=== PATIENT | female | born 1970 | race Two or more races ===

== ENCOUNTER → 2024-07-12 | Outpatient (CLI) | payer BC, MEDICAID, SELFPAY ==
--- NOTE | 2024-07-12 | XR_ITS ---
Examination: Lumbar spine 3 views Technique one AP lateral coned lateral lower lumbar spine 3 views Exam date and time: July 12, 2024 1137 hours INDICATIONS: Patient fell 2 years ago with injury to lower back, lower back pain. FINDINGS: No acute lumbar fracture Grade 2 spondylolisthesis L5 on S1 with advanced degenerative disc disease at this level No cortical bone destruction Intact pedicles IMPRESSION: Grade 2 spondylolisthesis L5 on S1 Advanced degenerative disc disease L5-S1 No lumbar fracture
--- NOTE | 2024-07-12 | XR_ITS ---
Examination: AP pelvis single view TECHNIQUE: AP portable supine pelvis single view Exam date and time: July 12, 2024 1141 hours INDICATIONS: Patient fell 2 years ago with injury to the pelvis, bilateral pelvic pain. FINDINGS: No acute hip or pelvic fracture Mild bilateral hip osteoarthritis Bilateral greater trochanteric bursitis IMPRESSION: Mild bilateral hip osteoarthritis Bilateral hip greater trochanteric bursitis
== END | disposition home or self-care (01) ==
PROVIDERS: PCP Internal Medicine
DX: M43.17 Spondylolisthesis, lumbosacral region (principal); M51.379 Other intervertebral disc degeneration, lumbosacral region without mention of lumbar back pain or lower extremity pain; M16.0 Bilateral primary osteoarthritis of hip; M70.62 Trochanteric bursitis, left hip; M70.61 Trochanteric bursitis, right hip
CPT/HCPCS: 72100; 72170

== ENCOUNTER 2025-02-23 12:32 | Emergency (ER) | payer OTHER, SELFPAY ==
[2025-02-23 12:33] VITALS: BMI 21.2
[2025-02-23 12:47] VITALS: BP 145/84; PULSE 89; RESP 18; TEMP 36.9; O2SAT 99
--- NOTE | 2025-02-23 12:53 | XR_ITS ---
Examination: Knee, left, 3 views Technique: Knee AP, lateral, oblique 3 views Date and time of exam: February 23, 2025: 1300 hours INDICATIONS: Ground-level fall today with injury to the knee, knee pain. FINDINGS: No knee fracture or dislocation No foreign body IMPRESSION: No fracture or dislocation
--- NOTE | 2025-02-23 12:53 | XR_ITS ---
Examination: Shoulder, left, 3 views Technique: Shoulder AP internal rotation, AP external rotation, Y view shoulder, 3 views Exam date and time : February 23, 2025, 1300 hours INDICATIONS: Ground-level fall today with injury to the shoulder, shoulder pain. FINDINGS: No shoulder fracture or dislocation Prominent calcific tendinitis IMPRESSION: No shoulder fracture or dislocation
--- NOTE | 2025-02-23 12:53 | XR_ITS ---
EXAMINATION: Lumbar spine 3 views TECHNIQUE: AP lateral: Lateral lower lumbar spine 3 views Date and time: February 23, 2025, 1300 hours, comparison July 12, 2024 INDICATIONS: Ground-level fall today with injury of the lower back, lower back pain. FINDINGS: No acute lumbar fracture Again noted grade 2 spondylolisthesis L5 on S1 with advanced degenerative disc disease at this level Mild lumbar spondylosis IMPRESSION: No acute lumbar fracture
--- NOTE | 2025-02-23 12:53 | XR_ITS ---
Examination: Left hip AP, lateral, AP pelvis 3 views Technique: Hip AP lateral, AP pelvis, 3 views Exam date and time: February 23, 2025, 1300 hours INDICATIONS: Ground-level fall today with injury of the left hip, left hip pain. FINDINGS: No left hip fracture or hip dislocation Right hip bones of the pelvis intact Bilateral hip greater trochanteric bursitis IMPRESSION: No hip or pelvic fracture Repeat an AP pelvis film in 1 day as clinically warranted.
--- NOTE | 2025-02-23 12:54 | EDNOTE_ITS ---
ED Fall Injury RME/HPI General Chief Complaint: Fall Stated Complaint: S/P FALL AT WORK 3 DAYS AGO Time Seen by Provider: 02/23/25 12:41 Source: patient Arrival date/time: 02/23/25 12:32 55-year-old female with no known medical history was sent to the emergency room by her work after having a ground-level fall that occurred 3 days ago in which she missed a step and fell on her left side injuring her shoulder hip and knee Mode of arrival: ambulatory Limitations: no limitations Related Data Allergies Allergy/AdvReac Type Severity Reaction Status Date / Time No Known Allergies Allergy Unknown Uncoded 02/23/25 12:33 Review of Systems Review of Systems Systems Reviewed: All systems reviewed, normal except as documented Constitutional Constitutional: Reports system reviewed and no additional complaints, except as documented, Denies fatigue, Denies fever(s), Denies headache(s) and Denies weakness Eyes Eyes: Reports system reviewed and no additional complaints, except as documented, Denies blurry vision and Denies change in vision ENT Ears, Nose, Mouth, and Throat: Reports system reviewed and no additional complaints, except as documented, Denies otalgia, Denies headache(s), Denies nasal congestion, Denies throat swelling and Denies vertigo Cardiovascular Cardiovascular: Reports system reviewed and no additional complaints, except as documented, Denies chest pain, Denies dyspnea and Denies dyspnea on exertion Respiratory Respiratory: Reports system reviewed and no additional complaints, except as documented, Denies chest congestion, Denies cough, Denies dyspnea, Denies dyspnea on exertion and Denies wheezing Gastrointestinal Gastrointestinal: Reports system reviewed and no additional complaints, except as documented, Denies abdominal pain, Denies cramping, Denies nausea and Denies vomiting Genitourinary Genitourinary: Reports system reviewed and no additional complaints, except as documented Musculoskeletal Musculoskeletal: Reports system reviewed and no additional complaints, except as documented, Reports arthralgias, Denies back pain, Reports joint swelling and Reports limited range of motion Integumentary/Breasts Skin/Breast: Reports system reviewed and no additional complaints, except as documented and Denies wounds Neurologic Neurologic: Reports system reviewed and no additional complaints, except as documented, Denies confusion, Denies headache(s), Denies lack of coordination, Denies vertigo and Denies weakness Psychiatric Psychiatric: Reports system reviewed and no additional complaints, except as documented, Denies anxiety, Denies confusion, Denies depression, Denies paranoia, Denies suicidal ideation and Denies tactile hallucinations Endocrine Endocrine: Reports system reviewed and no additional complaints, except as documented and Denies fatigue Hematologic/Lymphatic Hematologic/Lymphatic: Reports system reviewed and no additional complaints, except as documented and Denies lymphadenopathy Allergic/Immunologic Allergic/Immunologic: Reports system reviewed and no additional complaints, except as documented, Denies throat swelling, Denies urticaria and Denies wheezing Past Medical History Social History SMOKING STATUS: Current every day smoker ED Exam General Limitations: Present no limitations General appearance: Present alert and in no apparent distress Head Head exam: Present atraumatic Eye Eye exam: Present normal appearance, PERRL and EOMI ENT ENT exam: Present normal exam, normal oropharynx and mucous membranes moist Neck Neck exam: Present normal inspection, full ROM and trachea midline Chest Chest inspection: Present normal inspection and symmetric chest wall rise Respiratory Respiratory exam: Present normal lung sounds bilaterally; Absent respiratory distress, wheezes, stridor, accessory muscle use or prolonged expiratory phase Cardiovascular Cardiovascular exam: Present regular rate, normal rhythm and normal heart sounds Abdominal Exam Abdominal exam: Present soft and normal bowel sounds Extremities Exam Extremities exam: Present normal inspection and full ROM Expanded Upper Extremity Exam Shoulder exam: Present normal inspection Expanded Lower Extremity Exam Hip/Pelvis exam: Present tenderness Knee exam: Present tenderness Back Exam Back exam: Present normal inspection and full ROM Neurological Exam Neurological exam: Present alert, oriented X3 and CN II-XII intact Psychiatric Psychiatric exam: Present normal affect and normal mood Skin Skin exam: Present warm, dry, intact and normal color Course Quality Measures none Orders Category Date Time Status XR hip LT w pelvis 2-3V Stat Exams 02/23/25 12:53 Completed XR knee LT 3V Stat Exams 02/23/25 12:53 Completed XR lumbar spine 2-3V Stat Exams 02/23/25 12:53 Completed XR shoulder LT min 2V Stat Exams 02/23/25 12:53 Completed Vital Signs Vital signs: Vital Signs Temperature 98.5 F 02/23/25 12:47 Pulse Rate 89 02/23/25 12:47 Respiratory Rate 18 02/23/25 12:47 Blood Pressure 145/84 H 02/23/25 12:47 Pulse Oximetry (%) 99 02/23/25 12:47 Oxygen Delivery Method Room Air 02/23/25 12:47 Fall MDM Narrative MDM Narrative:: 55-year-old female with no known medical history was sent to the emergency room by her work after having a ground-level fall that occurred 3 days ago in which she missed a step and fell on her left side injuring her shoulder hip and knee Patient is hemodynamically stable and in no apparent distress Physical examination shows clear bilateral lung sounds. The patient has a soft nontender abdomen. Patient is complaining of left shoulder pain. Patient has full range of motion to her shoulder but there is some point tenderness. Patient is complaining of left hip tenderness. The patient has full range of motion and is able to ambulate. X-ray of the hip was completed and was negative for any acute fracture or dislocation Patient is complaining of left knee pain. The patient is able to ambulate. There is some tenderness. There is no swelling no bruising. Patient is complaining of lumbar back pain. X-ray was negative for any acute fractures or dislocations. Patient was discharged and educated to follow-up with primary care provider in the next 24 to 48 hours and return to the emergency room for any evidence of worsening signs or symptoms Patient data External records reviewed:: [facility] previous records Clinical information provided by:: patient Social determinants that could affect healthcare access:: none Patient has the following chronic illnesses:: No chronic illness How is presenting disease/condition affected by chronic disease/condition?: no chronic disease Evaluation data The following diagnostics were reviewed and interpreted by me:: lab results and radiology exam(s) Lab and/or radiology exams considered but not ordered:: Labs and radiology exams considered and ordered Interpretation Summary: X-ray lumbar spine-no acute fracture or dislocation X-ray left shoulder-no acute fracture or dislocation X-ray left hip-no acute fracture or dislocation X-ray left knee-no acute fracture or dislocation Medications / Prescriptions Medications or Prescriptions considered but not ordered:: N/A Medication administrations:: N/A Consultations Consultation(s) initiated? (list below): No Diagnosis Fall Differential Diagnosis: dislocation of shoulder region, fracture of wrist and other (Fall) Most likely diagnosis given after review of the tests above:: Fall Admission Indicated Admission indicated?: not indicated Admission Request Was there a request for admission?: No Disposition Plan Disposition Plan: Discharge Discharge Attestation Discharge Attestation: The patient and all family members were given an opportunity to ask questions and understood the discharge instructions. Discharge instructions specifically effects, indications for sooner follow up or return to the emergency department, and the expected course of current diagnosis. Patient condition: Stable Discharge Plan Plan Patient Disposition: HOME (Self Care) Discharge Disposition comment: Stable Prescriptions/Referrals Referrals: Caterina Gonzalez MD [Primary Care Provider, Family Practice] - In 1 week Problem List Clinical Impression: Fall Patient/Caregiver Discharge Instructions Education Materials: Preventing Falls Moving Safely ..., Preventing Falls Moving Safely ... Additional Instructions: Please follow-up with your Workmen's Comp. in the next 24 to 48 hours Your x-rays of your spine, hip, shoulder, knees were negative for any acute findings There are no acute fractures or any dislocations For any evidence of worsening signs or symptoms return to emergency room immediately Print Language: Malay Stand Alone Forms: [employer] Award Info., Work/School Release, Patient Portal Info Letter
== END 2025-02-23 15:08 | disposition home or self-care (01) ==
PROVIDERS: Emergency Provider Nurse Practitioner Family; PCP Family Medicine
DX: S49.92XA Unspecified injury of left shoulder and upper arm, initial encounter (principal); S79.912A Unspecified injury of left hip, initial encounter; S89.92XA Unspecified injury of left lower leg, initial encounter; W10.9XXA Fall (on) (from) unspecified stairs and steps, initial encounter; Y99.0 Civilian activity done for income or pay
CPT/HCPCS: 72100; 73030; 73502; 73562; 99282